=== PATIENT | female | born 1960 | race African-American/Black ===

== ENCOUNTER → 2017-03-10 | Outpatient (CLI) | payer BC ==
[~2017-03-10] MED LIST: AMOXICILLIN PO; ANTIVERT PO; ASPIRIN81 M1 PO; BENTYL10 MG DOB; COZAAR100 MG PO; FISH OIL PO; MULTI VITAMIN PO; MULTI VITAMIN1 EACH PO; NASONEX17 GM; PANTOPRAZOLE SO40 MG; PANTOPRAZOLE SO40 MG PO; PHENERGAN PR; VITAMIN D10000 UNIT PO
--- NOTE | ~2017-03-10 | US6 ---
[facility] A Service of [facility] & [facility] RADIOLOGY TEXT RESULTS PATIENT: ANA LUISA CHRISTENSEN LOCATION: [facility] : 60 UNIT #: [id number] AGE: [address]: GERARD DUARTE APRN SEX: F ORDER DR: [id number] [facility] [address] [place], [place] [address] [id number] O MR#: [id number] Acc #: [id number] NAME: ANA LUISA CHRISTENSEN : 1960 SEX: F STUDY DATE/TIME: 03/10/2017 8:01 UNIT: [facility] ROOM: STUDY DESCRIPTION: US Abdominal Limited Attending Physician: Gerard Duarte Aprn Referring Physician: Gerard Duarte Aprn Ordering Physician: Gerard Duarte Aprn Primary Care Physician: Gerard Duarte Aprn MEDICAL IMAGING REPORT This report is preliminary unless electronic signature is present EXAM Right upper quadrant ultrasound, 03/10/2017. HISTORY Right upper quadrant abdominal pain, epigastric pain, nausea, flank pain, and dyspepsia for 5 months. FINDINGS Ultrasound examination of the gallbladder is negative. There is no cholelithiasis, gallbladder wall thickening, or bile duct dilatation. The visualized liver is negative. IMPRESSION Negative gallbladder ultrasound examination. Dictated by... Rosalio Boyle M.D. THIS IS AN ELECTRONICALLY VERIFIED REPORT Rosalio Boyle M.D. at 03/11/2017 8:07 AM CAROL/laura TD: 03/10/2017 10:12 JOB #: [id number] MEDICAL IMAGING REPORT Page 1 of 1 COPY
== END | disposition home or self-care (01) ==
LOC: CWCC 07:40 → CGUS 08:00 → CWCC 08:00 → CGUS 03-16 09:00
DX: R10.11 Right upper quadrant pain (principal); R10.12 Left upper quadrant pain; R10.13 Epigastric pain
CPT/HCPCS: 76705